=== PATIENT | male | born 1945 | race Two or more races ===

== ENCOUNTER 2016-09-15 08:55 | Emergency (ER) | payer MEDICARE, OTHER ==
[2016-09-15] MEDS ORDERED: ASPIRIN CHEWTAB 81 MG TABLET ONE (09:22)
[2016-09-15] MEDS ORDERED: KETOROLAC TROMETHAMINE 30 MG/ML 1 ML VIAL ONE (09:22)
[2016-09-15 09:26] LABS: BASO % 0.6 % (0.2-1.0); EOS # 0.3 (0.0-0.5); HEMATOCRIT 45.9 % (32.0-52.0); IMM NEUT% 0.4 % (0-1); LYMPH # 1.8 (1.0-4.8); LYMPH % 25.9 % (15-45); MEAN CELL VOLUME 94.4 fl (80.0-94.0); MEAN CORPUSCULAR HEMOGLOBIN 30.9 pg (27.0-31.0); MEAN CORPUSCULAR HGB CONC 32.7 g/dl (33.0-37.0); MONO # 0.7 (0.0-0.8); MONO % 10.7 % (4-12); NEUT % 58.4 % (43-75); PLATELET COUNT 154 K/mm3 (130-400); RED CELL DISTRIBUTION WIDTH 11.9 % (11.5-14.5)
--- NOTE | 2016-09-15 09:41 | RAD ---
09/15/2016 9:36 AM CHEST - 2 VIEWS History: 3 days chest pain. Dyspnea with deep inspiration. Comparison: 11/05/2015 Findings: Two views of the chest are obtained. The lungs are clear with out effusion or pneumothorax. The cardiomediastinal silhouette is unremarkable.. The osseous structures are intact.. Median sternotomy wires are present. IMPRESSION: No acute intrathoracic process.
[2016-09-15 09:42] LABS: ALB/GLOB RATIO 1.4 (>1.0); ALBUMIN 4.2 gm/dL (3.5-5.7); CALCIUM 8.8 mg/dL (8.6-10.3)
== END 2016-09-15 10:42 | disposition home or self-care (01) ==
LOC: ED 08:55
DX: R07.81 Pleurodynia (principal); R07.9 Chest pain, unspecified; I25.2 Old myocardial infarction; I10 Essential (primary) hypertension
CPT/HCPCS: 85379; 85025; 80053; 84484; 71020; 99284; 96374; 93005; 99283; A9270; J1885

== ENCOUNTER 2016-09-22 13:28 | Emergency (ER) | payer MEDICARE, OTHER | END 2016-09-22 14:40 | disposition home or self-care (01) | LOC: ED 13:28 | DX: B02.9 Zoster without complications (principal); I10 Essential (primary) hypertension; I25.2 Old myocardial infarction ==